=== PATIENT | female | born 1935 | race Caucasian/White ===

== ENCOUNTER 2017-03-15 11:58 | Inpatient (IN) | payer MEDICARE, OTHER ==
[~2017-03-15] VITALS: Ht 149.9 cm; Wt 48.9 kg
[~2017-03-15 11:58] MED LIST: ACET325T14 PO; DOCU-30 PO; ENOX40SY4 SQ; LISI-170 PO; NITR50CA PO; OXYC-302 PO; POLY17PO5 PO
[2017-03-15] MEDS ORDERED: SODIUM CHLORIDE FLUSH 10ML SYR IVF ONE (12:30)
[2017-03-15] MEDS ORDERED: SODIUM CHLORIDE 0.9% 1,000ML IVBOLUS ONE (12:30)
[2017-03-15] MEDS ORDERED: ACETAMINOPHEN 500 MG TABLET PO ONE (12:30)
[2017-03-15 12:55] LABS: HEMATOCRIT 42.7 % (34.6-47.8); HEMOGLOBIN 14.2 g/dL (11.7-16.4); WHITE BLOOD COUNT 14.8 x10^3/uL (3.4-10)
[2017-03-15] MEDS ORDERED: ACETAMINOPHEN 325 MG TABLET ONE (12:55)
[2017-03-15] MEDS ORDERED: ACETAMINOPHEN 500 MG TABLET ONE (12:57)
[2017-03-15 13:08] LABS: ASPARTATE AMINO TRANSFERASE 12 U/L (15-37); BLOOD UREA NITROGEN 15 mg/dL (7-18)
[2017-03-15] MEDS ORDERED: CHOL200012 PO (15:23)
[2017-03-15] MEDS ORDERED: MULT-516 PO (15:23)
[2017-03-15] MEDS ORDERED: DOCU-30 PO (15:23)
[2017-03-15] MEDS ORDERED: FLUT9.9S NAS (15:23)
[2017-03-15] MEDS ORDERED: CEFTRIAXONE PMX 1GM/50ML 50 ML ONE (15:28)
[2017-03-15] MEDS ORDERED: HYDROcodone/APAP 5/325 TABLET PO PRN (15:30)
[2017-03-15] MEDS ORDERED: ACETAMINOPHEN 325 MG TABLET PO PRN (15:30)
[2017-03-15] MEDS ORDERED: ONDANSETRON 2MG/ML, 2ML IVPush PRN (15:30)
[2017-03-15] MEDS ORDERED: CEFTRIAXONE PMX 1GM/50ML 50 ML IV ONE (15:30)
[2017-03-15] MEDS ORDERED: DOCUSATE 100 MG CAPSULE PO PRN (15:30)
[2017-03-15] MEDS ORDERED: POLYETHYLENE GLYCOL 17 GM PACKET PO PRN (15:30)
[2017-03-15] MEDS ORDERED: AZITHROMYCIN 500 MG in SODIUM CHLORIDE 0.9% 250 ML IV ONE (15:30)
[2017-03-15] MEDS: CETIRIZINE 10 MG TABLET PO SCH (15:30)
[2017-03-15] MEDS ORDERED: NS + 20MEQ KCL 1,000 ML IV SCH (16:30)
[2017-03-15 20:13] VITALS: BP 123/67
[2017-03-15 20:15] VITALS: BP 123/67
[2017-03-15] MEDS: ENOXAPARIN 40 MG/0.4 ML SQ SCH (21:02)
[2017-03-15] MEDS: LISINOPRIL 20 MG TABLET PO SCH (21:02)
[2017-03-16 02:00] VITALS: BP 166/78
[2017-03-16 05:45] LABS: HEMATOCRIT 37.3 % (34.6-47.8); HEMOGLOBIN 12.3 g/dL (11.7-16.4); WHITE BLOOD COUNT 14.5 x10^3/uL (3.4-10)
[2017-03-16 05:49] LABS: BLOOD UREA NITROGEN 16 mg/dL (7-18)
[2017-03-16 07:47] VITALS: BP 134/71
[2017-03-16] MEDS: SENNA/DOCUSATE TABLET PO SCH (08:56)
[2017-03-16] MEDS: MULTIVITAMIN 1 TABLET PO SCH (08:56)
[2017-03-16] MEDS: CETIRIZINE 10 MG TABLET PO SCH (08:57)
[2017-03-16] MEDS: GUAIFENESIN/DM 200-20MG, 10ML UDC PO PRN (09:03)
[2017-03-16 13:48] VITALS: BP 142/69
[2017-03-16] MEDS ORDERED: AZITHROMYCIN 500 MG in SODIUM CHLORIDE 0.9% 250 ML IV SCH (16:00)
[2017-03-16] MEDS ORDERED: CEFTRIAXONE PMX 1GM/50ML 50 ML IV SCH (16:30)
[2017-03-16 19:12] VITALS: BP 149/71
[2017-03-16] MEDS: LISINOPRIL 20 MG TABLET PO SCH (20:32)
[2017-03-16] MEDS: ENOXAPARIN 40 MG/0.4 ML SQ SCH (20:32)
[2017-03-17 01:18] VITALS: BP 120/70
[2017-03-17] MEDS: GUAIFENESIN/DM 200-20MG, 10ML UDC PO PRN (03:32)
[2017-03-17 06:12] LABS: HEMOGLOBIN 11.6 g/dL (11.7-16.4)
[2017-03-17 08:24] VITALS: BP 111/66
[2017-03-17] MEDS: SENNA/DOCUSATE TABLET PO SCH (09:11)
[2017-03-17] MEDS: MULTIVITAMIN 1 TABLET PO SCH (09:11)
[2017-03-17] MEDS: CETIRIZINE 10 MG TABLET PO SCH (09:11)
[2017-03-17] MEDS ORDERED: AZIT500T PO (15:07)
[2017-03-17] MEDS ORDERED: CEFD300C37 PO (15:07)
[2017-03-17 15:15] VITALS: BP 115/70
== END 2017-03-17 17:32 | disposition home or self-care (01) | DRG 871 ==
LOC: ED 14:28 → EDIP 14:52 → SUATTDRO 15:09 → 3NE 15:58
PROVIDERS: ADMIT Family Medicine; ATTEND Family Medicine
PROC: 0T9B70Z Drainage of Bladder with Drainage Device, Via Natural or Artificial Opening (ICD-10-PCS; principal; 2017-03-15)
DX: A41.9 Sepsis, unspecified organism (principal); J18.1 Lobar pneumonia, unspecified organism; E87.1 Hypo-osmolality and hyponatremia; G89.29 Other chronic pain; I10 Essential (primary) hypertension; J30.2 Other seasonal allergic rhinitis; J40 Bronchitis, not specified as acute or chronic; Z66 Do not resuscitate; M19.90 Unspecified osteoarthritis, unspecified site
CPT/HCPCS: 36415; 71010; 72131; 80048; 80053; 81001; 83605; 83735; 84145; 85025; 87040; 93005; 96361; 96365; 96375; J0456; J0696; J1650; J3480; J7030; J7050

== ENCOUNTER → 2017-07-22 | Outpatient (CLI) | payer OTHER ==
[~2017-07-22] MED LIST changes: +AZIT500T PO; +CEFD300C37 PO; +CHOL200074 PO; +DOCU-131 PO; -DOCU-30 PO; +FLUT9.9S NAS; +MULT-516 PO; +OMNIPAQUE 350 MG/ML, 100ML BOTTLE ONE
== END | disposition home or self-care (01) ==
LOC: CFH 10:58
PROVIDERS: ATTEND Nurse Practitioner
DX: I25.10 Atherosclerotic heart disease of native coronary artery without angina pectoris (principal); I72.8 Aneurysm of other specified arteries; M47.896 Other spondylosis, lumbar region; K57.30 Diverticulosis of large intestine without perforation or abscess without bleeding; K44.9 Diaphragmatic hernia without obstruction or gangrene; N28.1 Cyst of kidney, acquired
CPT/HCPCS: 74174; 82565; Q9967

== ENCOUNTER → 2017-09-01 | Outpatient (CLI) | payer OTHER ==
[~2017-09-01] MED LIST changes: -OMNIPAQUE 350 MG/ML, 100ML BOTTLE ONE
== END ==
LOC: CFH 09:42
PROVIDERS: ATTEND Nurse Practitioner Family
DX: Z13.820 Encounter for screening for osteoporosis (principal); N95.1 Menopausal and female climacteric states
CPT/HCPCS: 77080

== ENCOUNTER → 2019-08-25 | Outpatient (CLI) | payer MEDICARE | END | disposition home or self-care (01) | LOC: CFH 10:04 | PROVIDERS: ATTEND Nurse Practitioner Family | DX: Z13.820 Encounter for screening for osteoporosis (principal); M81.0 Age-related osteoporosis without current pathological fracture; M85.88 Other specified disorders of bone density and structure, other site | CPT/HCPCS: 77080 ==